=== PATIENT | female | born 2000 | race Caucasian/White ===

== ENCOUNTER 2022-04-06 07:50 | Emergency (ER) | payer MEDICAID, OTHER ==
[~2022-04-06] VITALS: Ht 167.6 cm; Wt 108.9 kg
[2022-04-06 07:58] VITALS: BP 124/73
--- NOTE | 2022-04-06 07:58 | NUR ---
L EAR PAIN POSSIBLE INFECTION THAT STARTED YESTERDAY.
[2022-04-06] MEDS ORDERED: NEOM10DR46 OT (08:06)
[2022-04-07] MEDS ORDERED: IBUP-1955 PO (18:41)
== END 2022-04-06 08:13 | disposition home or self-care (01) ==
LOC: ER 08:11
DX: H60.92 Unspecified otitis externa, left ear (principal); Z79.899 Other long term (current) drug therapy
CPT/HCPCS: 82962-TC

== ENCOUNTER 2022-04-07 18:14 | Emergency (ER) | payer MEDICAID ==
[~2022-04-07] VITALS: Ht 167.6 cm; Wt 108.9 kg
[~2022-04-07 18:14] MED LIST: NEOM10DR46 OT
[2022-04-07 18:20] VITALS: BP 130/82
[2022-04-07] MEDS ORDERED: KETOROLAC TROMETHAMINE INJ 60 MG/2 ML VIAL IM ONE (18:30)
[2022-04-07] MEDS ORDERED: KETOROLAC TROMETHAMINE INJ 30 MG/ML VIAL ONE (18:40)
[2022-04-07] MEDS ORDERED: IBUP-1955 PO (18:41)
== END 2022-04-07 18:56 | disposition home or self-care (01) ==
LOC: ER 18:23
DX: H60.12 Cellulitis of left external ear (principal); Z79.899 Other long term (current) drug therapy
CPT/HCPCS: 99283; 96372; J1885